=== PATIENT | male | born 1990 | race Caucasian/White ===

== ENCOUNTER 2018-06-23 08:34 | Inpatient (IN) | payer OTHER ==
[~2018-06-23] VITALS: Ht 185.4 cm; Wt 73.0 kg
[2018-06-23 08:39] VITALS: BP 140/73
[2018-06-23 09:16] LABS: ABSOLUTE NEUTROPHILS 12.9 thou/uL (1.4-8.2); BASOPHILS 0.3 % (0.0-2.0); HEMATOCRIT 47.2 % (42.0-52.0); HEMOGLOBIN 16.2 gm/dL (14.0-18.0); LYMPHOCYTES 5.6 % (24.0-44.0); MCH 30.4 pg (26.0-34.0); MCHC 34.3 g/dL (28.0-37.0); MCV 88.4 fL (80.0-100.0); MONOCYTES 5.8 % (1.0-8.0); PLATELET COUNT 189 thou/uL (150-400); POLYS 88.3 % (36.0-66.0); RBC 5.34 mil/uL (4.50-6.00); WBC 14.7 thou/uL (4.0-11.0)
[2018-06-23 09:30] LABS: CALCIUM 9.1 mg/dL (8.5-10.1); POTASSIUM 3.6 mmol/L (3.5-5.1)
[2018-06-23 09:36] LABS: ALBUMIN 3.9 g/dL (3.4-5.0); TOTAL BILIRUBIN 0.9 mg/dL (<0.1-1.0); TOTAL PROTEIN 8.2 g/dL (6.4-8.2)
[2018-06-23 10:17] VITALS: BP 156/81
[2018-06-23 10:20] VITALS: BP 148/84; BP 156/81
[2018-06-23 11:29] VITALS: BP 145/70
--- NOTE | 2018-06-23 13:25 | NUR ---
report called to ravi santos at 3w. pt trasnferred via w/c in stable condition.
[2018-06-23 13:42] VITALS: BP 150/72
--- NOTE | 2018-06-23 14:58 | NUR ---
ADMITTED PATIENT TO ROOM AT THIS TIME AND HE IS ALERT ORIENT X4. DID STATE THAT HE HAD PAIN TO HIS CHEST AND PRN PAIN MEDICATION ADMINISTERED. IT WAS EFFECTIVE HE IS NOW SLEEPING. OXYGEN TITRATED DOWN TO 4L AND SATS HAS REMAINED ABOVE 94%. WILL CONT TO MONITOR OXYGEN.
[2018-06-23 16:00] VITALS: BP 129/76
[2018-06-24] VITALS: BP 124/78
[2018-06-24 03:27] VITALS: BP 126/76
--- NOTE | 2018-06-24 04:45 | NUR ---
PATIENT IS PROGRESSING IN HIS CARE PLAN. VITAL SIGNS STABLE THROUGHOUT SHIFT WITH PATIENT HAVING NO COMPLAINTS OF NAUSEA. PATIENT DID COMPLAIN OF NON CARDIAC CHEST PAIN WHICH WAS CONTROLLED WITH MEDICATIONS AND NON PHARMACOLOGICAL INTERVENTION. FULLY ORIENTED, PATIENT WAS ABLE TO PARTICIPATE IN CARE AND CALL APPROPRIATELY FOR NEEDS. BREATHING STABLE EVIDENCED BY READINGS ON CONTINUOUS SATURATION MONITOR. PATIENT UP TO BATHROOM MULTIPLE TIMES WITH STANDBY ASSISTANCE INCIDENT FREE. HE SHOULD BE CONSIDERED HIGH FALL RISK DUE TO WEAKNESS. NURSE EDUCATED PATIENT ON DANGERS OF CONTINUED CIGARETTE SMOKING. CONTINUE PLAN OF CARE.
[2018-06-24 08:09] VITALS: BP 130/80
[2018-06-24 08:25] LABS: HEMATOCRIT 39.5 % (42.0-52.0); MCH 30.5 pg (26.0-34.0); MCHC 34.1 g/dL (28.0-37.0); MCV 89.4 fL (80.0-100.0); RBC 4.42 mil/uL (4.50-6.00); RDW 13.8 % (10.5-14.5); WBC 8.1 thou/uL (4.0-11.0)
[2018-06-24 08:41] LABS: HEMOGLOBIN 13.5 gm/dL (14.0-18.0)
[2018-06-24 08:44] LABS: CALCIUM 7.9 mg/dL (8.5-10.1); CREATININE 0.8 mg/dL (0.7-1.3); MAGNESIUM 2.1 mg/dL (1.8-2.4); POTASSIUM 3.7 mmol/L (3.5-5.1)
--- NOTE | 2018-06-24 08:50 | NUR ---
ALERT ORIENTED X4 THIS AM. IN A PLEASANT MODE. STATES HE IS STILL HAVING CHEST PAIN WHEN HE COUGHS. AKNOWLEDGES THAT PAIN MEDICATION DOES HELP SOME. ON OXYGEN AT THIS TIME AND SATURATIONS ARE ABOVE 92%. WILL CONT WITH PLAN OF CARE.
--- NOTE | 2018-06-24 13:43 | NUR ---
ASSESSMENT: CM REVIEWED CHART AND MET WITH PATIENT AT THE BEDSIDE. PT IS ALERT AND ORIENTED X4. PT WAS ADMITTED WITH PNEUOMONIA. PT REPORTS HE LIVES IN AN [place]T. PT REPORTS HE IS INDEPENDENT WITH ADLS AND AMBULATION. PT DENIES HAVING HH IN THE PAST. PT REPORTS HE DOES NOT HAVE A PCP AT THIS TIME. CM PROVIDED PATIENT WITH DIFFERENT RESOURCES HE CAN CALL IN ATTEMPTS TO ESTABLISH ONE. PT ALSO STATED HE SPOKE WITH THE DOCTOR ABOUT POSSIBLY STARTING CHANTXI TO HELP WITH SMOKING CESSATION SO CM PROVIDED PATIENT WITH A COUPON FOR CHANTIX. PT REPORTS NO FURTHER NEEDS FROM CM AT THIS TIME.
[2018-06-24 16:48] VITALS: BP 133/80
[2018-06-24 19:56] VITALS: BP 127/82
[2018-06-25 03:57] VITALS: BP 130/87
[2018-06-25 04:44] LABS: HEMATOCRIT 36.6 % (42.0-52.0); HEMOGLOBIN 12.4 gm/dL (14.0-18.0); MCH 30.3 pg (26.0-34.0); MCHC 33.7 g/dL (28.0-37.0); MCV 89.8 fL (80.0-100.0); RBC 4.08 mil/uL (4.50-6.00); WBC 12.5 thou/uL (4.0-11.0)
[2018-06-25 04:54] LABS: CALCIUM 7.8 mg/dL (8.5-10.1); CREATININE 0.7 mg/dL (0.7-1.3); MAGNESIUM 1.9 mg/dL (1.8-2.4); POTASSIUM 3.9 mmol/L (3.5-5.1)
--- NOTE | 2018-06-25 06:16 | NUR ---
PATIENT IS ALERT AND ORIENTED. PATIENT IS SBA DUE TO HX OF SYNCOPE AND MULT LINES AND TUBING. PATIENT SHOWERED THIS SHIFT. PATIENT WAS TITRATED DOWN TO 3L NC. PATIENT DENIES PAIN. PATIENT IS RESTING COMFORTABLEY IN BED. WCM. PATIENT IS PROGRESSING TO GOALS.
--- NOTE | 2018-06-25 08:00 | NUR ---
STATES HE FEELS BETTER THIS AM. AMBULATED TO RESTROOM WITH STEADY GAIT. CONT ON OXYGEN AT 3L AND SATS ABOVE 93% AT THIS TIME. HE IS PRGRESSING TOWARDS DISCHARGE.
[2018-06-25 15:34] VITALS: BP 145/73
[2018-06-25 20:46] VITALS: BP 144/81
--- NOTE | 2018-06-26 03:33 | NUR ---
PATIENT IS ALERT AND ORIENTED. PATIENT IS SBA. PATIENT IS ON 2LNC. PATIENT IS SINUS ARRHYTHMIA ON TELE. PATIENTS LBM WAS THE . PATIENT SHOWERED THIS SHIFT. PATIENT IS ON CONTINOUS PULSE OX. PATIENT IS PENDING POSSIBLE DISCHARGE TODAY. PATIENT IS RESTING COMFORTABLEY IN BED. WCM. PATIENT IS PROGRESSING TO GOALS.
[2018-06-26 04:30] VITALS: BP 159/85
[2018-06-26 06:21] LABS: HEMATOCRIT 38.3 % (42.0-52.0); HEMOGLOBIN 12.8 gm/dL (14.0-18.0); MCH 30.2 pg (26.0-34.0); MCHC 33.5 g/dL (28.0-37.0); MCV 90.1 fL (80.0-100.0); RBC 4.25 mil/uL (4.50-6.00); RDW 14.5 % (10.5-14.5); WBC 10.9 thou/uL (4.0-11.0)
[2018-06-26 06:38] LABS: CALCIUM 8.2 mg/dL (8.5-10.1); CREATININE 0.8 mg/dL (0.7-1.3); POTASSIUM 3.6 mmol/L (3.5-5.1)
[2018-06-26 07:55] VITALS: BP 150/92
[2018-06-26 11:48] VITALS: BP 148/77
[2018-06-26] MEDS ORDERED: LEVAQUIN 750 M750 MG PO (12:20)
[2018-06-26] MEDS ORDERED: PREDNISONE 10 M10 MG PO (12:20)
[2018-06-26] MEDS ORDERED: MUCINEX1200 MG PO (12:21)
[2018-06-26] MEDS ORDERED: CHANTIX1 EACH PO (12:27)
[2018-06-26] MEDS ORDERED: ALDARA1 EACH TOP (12:27)
[2018-06-26] MEDS ORDERED: VENTOLIN HFA 1818 GM INH (12:28)
[2018-06-26 12:41] VITALS: BP 148/77
--- NOTE | 2018-06-26 14:38 | NUR ---
PATIENT WILL BE DISCHARGED AT THIS TIME. ON ROOM AIR AND SATING ABOVE 94%. DENIES PAIN TODAY. HE AMBULATES ABOUT FACILITY WITH NO SIGNIFICANT DIFFICULTY. TOOK A SHOWER. EDUCATED ON MEDS AND LIFESTYLE CHANGES. WILL CONT WITH PLAN OF CARE.
[2018-06-28 07:12] LABS: ADENOVIRUS Negative (Negative); INFLUENZA A Negative (Negative); INFLUENZA B Negative (Negative); METAPNEUMOVIRUS Negative (Negative); PARAINFLUENZA 1 Negative (Negative); PARAINFLUENZA 2 Negative (Negative); PARAINFLUENZA 3 Negative (Negative); RHINOVIRUS Negative (Negative); RSV A Negative (Negative); RSV B Negative (Negative)
== END 2018-06-26 14:40 | disposition home or self-care (01) | DRG 871 ==
LOC: ER 08:34 → 3W 10:10 → EROBS 10:10 → 3W 10:30 → 4E 10:50 → 3W 13:33
PROVIDERS: Emergency Medicine; ADMIT Internal Medicine
DX: A41.9 Sepsis, unspecified organism (principal); J96.01 Acute respiratory failure with hypoxia; J15.9 Unspecified bacterial pneumonia; F12.90 Cannabis use, unspecified, uncomplicated; F17.210 Nicotine dependence, cigarettes, uncomplicated; K52.9 Noninfective gastroenteritis and colitis, unspecified; Z71.6 Tobacco abuse counseling; Z79.899 Other long term (current) drug therapy; Z83.6 Family history of other diseases of the respiratory system
CPT/HCPCS: 10080; 10879